=== PATIENT | female | born 1940 | race Caucasian/White ===

== ENCOUNTER → 2018-02-18 | Outpatient (CLI) | payer OTHER ==
[~2018-02-18] MED LIST: ATOR20 PO; AVALIDE PO; Cardizem CD 24240 MG PO; FURO40 PO; K-Dur20 MEQ PO; METF500 PO; MONT10T PO; OXYC5 PO; Restoril15 MG PO; SYNTHROID25 MCG PO
== END | disposition home or self-care (01) ==
LOC: LAB SHORT 08:55 → PLD 08:55
DX: D22.61 Melanocytic nevi of right upper limb, including shoulder (principal)
CPT/HCPCS: 88305

== ENCOUNTER → 2018-03-04 | Outpatient (CLI) | payer OTHER | LOC: LAB EV 17:26 → LAB SHORT 17:26 | DX: G89.4 Chronic pain syndrome (principal) | CPT/HCPCS: G0480 ==

== ENCOUNTER → 2021-08-29 | Outpatient (CLI) | payer OTHER | END | disposition home or self-care (01) | LOC: LAB SHORT 11:27 | DX: D48.5 Neoplasm of uncertain behavior of skin (principal) | CPT/HCPCS: 88305 ==

== ENCOUNTER → 2022-08-02 | Outpatient (CLI) | payer OTHER | END | disposition home or self-care (01) | LOC: LAB 13:17 → LAB SHORT 13:17 | DX: B37.2 Candidiasis of skin and nail (principal) | CPT/HCPCS: 87070; 87205 ==

== ENCOUNTER → 2023-12-12 | Outpatient (CLI) | payer OTHER | END | disposition home or self-care (01) | LOC: LAB 12:15 → LAB SHORT 12:15 | DX: L73.9 Follicular disorder, unspecified (principal) | CPT/HCPCS: 88305 ==